=== PATIENT | female | born 1930 | race Caucasian/White ===

== ENCOUNTER 2017-03-23 12:58 | Emergency (ER) | payer MEDICARE, MEDICAID ==
[2017-03-23] MEDS ORDERED: Albuterol/Ipratropium 3.0-0.5 MG/3 ML Neb Soln NEB ONE (13:44)
[2017-03-23 17:05] VITALS: BP 141/69
--- NOTE | 2017-03-24 04:16 | ER ---
DATE SEEN: 03/23/2017 HISTORY OF PRESENT ILLNESS: She is a resident of [facility]. This 86-year-old woman, who has been sick and not feeling good. She was ordered Z-Johny and Levaquin because she is thought to have pneumonia. At one point, her oxygen saturation dropped down to 66% and 4 L of O2 but as she arrived to the hospital, oxygen saturation 100% on 4 L and went down to 2 L and still was 100%. She has significant dementia. She does answer questions, but the dementia is very real. She is fair historian and denies chest pain, irregular heartbeat, shortness of breath, or cough. No abdominal discomfort, back pain, or leg pain. She is not ambulatory. CURRENT MEDICATIONS: 1. Calcitonin (salmon) nasal spray. 2. Omeprazole 20 mg daily. 3. Lisinopril 20 mg daily. 4. Levothyroxine 25 mcg daily. 5. Biscolax. ALLERGIES: Codeine. PHYSICAL EXAMINATION: GENERAL: The patient on examination has marked angular features and lot of subcutaneous tissues on her face. Minimal facial muscles, but mostly bony prominence. HEENT: Pharynx appropriate, she has missing several teeth. Neck: Without tenderness. There are no bruits in the neck. Lungs: Significant posterior bilateral lower 50% lungs rales. No rhonchi noted. Anterior lungs are fairly clear. Heart: No irregular rhythm. There is a soft murmur, systolic murmur. Abdomen: Soft. No guarding. No abdominal discomfort. Extremities: 1+ pedal edema. Deep tendon reflexes in upper and lower extremities hypoactive. Cranial nerves 2 through 12 intact. Oriented x1. DIAGNOSTIC STUDIES: X-ray reveals infiltrate in bilateral lungs more noticed in left side than right side. Reflects pneumonia. LABORATORY FINDINGS: White count 10,100, PMNs 75, lymphs 15, bands-bandemia 5%, and monocytes 5, hemoglobin 11.3 and low. Chemistry: CO2 is elevated at 32 (reflects respiratory acidosis), sodium 135, potassium 4.1, chloride 101, creatinine 0.8, BUN and creatinine ratio 22.5 (suggest mild dehydration), calculated calcium would be roughly 11.3 with albumin of 3.3. ASSESSMENT: 1. Pneumonia. Plan, treat with Levaquin 750 mg 1 dose IM every 2 days for 5 doses and also DuoNebs 4 times a day. With breakthrough or difficulty breathing or drop in oxygen saturation provide albuterol neb p.r.n. It is probable that the patient's oxygen saturation had dropped in assisted to low level just because of plugging or congestion or poor clearing of bronchial secretions and experience transient O2 drop. Oxygen saturation without O2 here in the ED was 100%. 2. Significant very dense dementia. 3. Poor dentition. TIME SEEN: The patient was seen at 1330. /[id number] GENA/MODL
--- NOTE | 2017-03-26 07:33 | CR ---
INDICATION: Rales, posterior, bilateral. CHEST: Two portable AP upright views of the chest were obtained 03/23/2017 and compared with 08/06/2011. There appear to be bibasilar pleural parenchymal changes on the current study, suggesting minimal bibasilar pneumonia and possibly pleuritis. Fixed hiatal hernia of moderately large size to large size is noted. The aorta is tortuous and calcified. The heart did not appear enlarged. Upper lung field pulmonary vasculature appears somewhat prominent, raising question of a mild degree of CHF additionally. Somewhat nodular appearing densities are noted in the right mid lung field, which could be related to abscess formation or even neoplastic process. Followup studies may be warranted, therefore. IMPRESSION: 1. Bibasilar pleural parenchymal changes may represent minimal pneumonia and pleuritis. 2. Cannot exclude a mild degree of CHF - the heart size was not enlarged, raising question of other etiology for pulmonary vascular congestion, such as renal failure or fluid overload. 3. Somewhat nodular appearing densities in the right mid lung field of questionable etiology. Followup recommended. MTDD
== END 2017-03-23 15:35 | disposition home or self-care (01) ==
LOC: FB.ED 12:58
DX: J18.9 Pneumonia, unspecified organism (principal); F03.90 Unspecified dementia, unspecified severity, without behavioral disturbance, psychotic disturbance, mood disturbance, and anxiety; K00.7 Teething syndrome; Z79.899 Other long term (current) drug therapy
CPT/HCPCS: 36415; 71010; 80053; 85025; 87040; 94664; 99285; J7620; 99283